=== PATIENT | female | born 1960 | race Caucasian/White ===

== ENCOUNTER 2022-03-11 18:02 | Emergency (ER) | payer BC, SELFPAY ==
[2022-03-11 18:05] VITALS: BP 138/89; PULSE 73; RESP 18; TEMP 35.7; O2SAT 100
--- NOTE | 2022-03-11 19:27 | CRLHL7_ITS ---
For Patients: As a result of the Century Cures Act, medical imaging exams and procedure reports are released immediately into your electronic medical record. You may view this report before your referring provider. If you have questions, please contact your health care provider. INDICATION: Right lower quadrant abdominal pain. TECHNIQUE: CT abdomen and pelvis without contrast. COMPARISON: 02/09/2021. FINDINGS: Lower chest: Unremarkable. Liver: Normal in size and attenuation. No suspicious masses. Gallbladder and bile ducts: No stones or inflammation. No biliary ductal dilatation. Spleen: Normal in size. No masses. Adrenal glands: Normal in size. No nodules. Pancreas: Unremarkable. No mass or inflammation. Kidneys: Normal in size. No suspicious masses, stones, or hydronephrosis. GI tract: Normal in caliber. No sign of mass or inflammation. Moderate colonic stool burden. Normal appendix. Lymph nodes: No lymphadenopathy. Vasculature: Scattered atherosclerotic calcifications. Abdominal wall/Omentum/Peritoneum: Similar hazy fat stranding involving the central mesentery. No free air or significant free fluid. Pelvis: Status post hysterectomy. Bones: Multilevel degenerative changes of the spine. IMPRESSION: 1. No acute abdominal or pelvic abnormality. No evidence of nonobstructive nephrolithiasis, urolithiasis, or hydronephrosis. 2. 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 3. Moderate colonic stool burden which can be seen with constipation. Please note that all CT scans at this facility use dose modulation, iterative reconstruction, and/or weight-based dosing when appropriate to reduce radiation dose to as low as reasonably achievable. Dictated by Benjie Brunson MD @ 03/11/2022 7:57:18 PM (Electronically Signed)
--- NOTE | 2022-03-11 19:28 | ED.ABDPAIN ---
HPI - Abdominal Pain General Chief Complaint: Abdominal Pain Stated Complaint: Stabbing Pain LR Abdomen Time Seen by Provider: 03/11/22 19:17 History of Present Illness HPI narrative: This 61-year-old female comes in reporting intermittent crampy right lower quadrant abdominal pain that woke her up in the morning at 3:00 a.m., about 16 hours ago. Since then she has had intermittent but intense episodes of abdominal pain localized in the right lower quadrant. She did have some urinary hesitancy last night and then some increased frequency this morning. She states that she may have had a kidney stone in the past as there was a suspicion for this but it was not identified at the time she was evaluated then as her symptoms had passed. She does not report any fevers, constipation, nausea, vomiting, or other symptoms of infection. Related Data Allergies Allergy/AdvReac Type Severity Reaction Status Date / Time Unable to Assess Allergy Unverified 03/11/22 18:11 Review of Systems Status of ROS Reports: 10 or more systems reviewed and unremarkable except as noted in History and below Narrative Constitutional: No fevers, no weight gain or loss. Eyes: No discharge. No vision changes. HENT: No congestion, no sore throat, no ear pain. Cardiovascular: No chest pain, no palpitations. Respiratory: No shortness of breath, no wheezes, no cough. Gastrointestinal: No vomiting, no diarrhea. Abdominal pain as described above. Genitourinary: No dysuria, no hematuria. Musculoskeletal: Normal range of motion. Skin: No rashes, no pruritis. Neurological: No dizziness, weakness, sensory change, speech change. Endo/Heme/Allergies: No bruising or bleeding. No polydipsia. Pysch: no suicidality, no anxiety, no insomnia. All other systems reviewed and are negative. [facility] Social History Smoking Status: Former smoker Do you use any of these nicotine containing products: None How often do you have a drink containing alcohol: 2-3 times a week How many standard drinks containing alcohol do you have on a typical day: 3 or 4 AUDIT-C Alcohol total score: 4 Non-prescribed substance use: denies use Exam Narrative: Exam Narrative: Constitutional: Well-developed, well-nourished, no acute distress. HEENT: Normocephalic, atraumatic. Neck: Normal range of motion. Nontender. Supple. Heart: Regular. No murmurs. Normal rate. Intact distal pulses. Lungs: Clear to auscultation. No chest discomfort. No wheezes, rhonchi, or rales. Abdomen: Normal bowel sounds. Tenderness in the right lower quadrant. I am able to palpate rather deeply there without increased pain. No rebound tenderness. Genitalia: Deferred. Back: No midline tenderness. Normal range of motion. Extremities: Normal range of motion. No injury. Skin: Intact. No rash. Warm. No erythema or pallor. Neurologic: No altered sensation. No weakness. Alert and oriented. Psychiatric: No suicidality. No anxiety or depression. No insomnia. Nursing notes and vitals signs are reviewed. Const: Vital Signs, click to edit/add: Vital Signs - 24 hr 03/11/22 18:05 Temperature 96.3 F L Pulse Rate [Pulse Oximeter] 73 Respiratory Rate 18 Blood Pressure [Ri ght Upper Arm] 138/89 Pulse Oximetry 100 Oxygen Delivery Me thod Room Air Course Vital Signs Vital signs: Initial Vital Signs Temperature 96.3 F L 03/11/22 18:05 Temperature Source Temporal Artery Scan 03/11/22 18:05 Pulse Rate 73 03/11/22 18:05 Pulse Rhythm 03/11/22 18:05 Respiratory Rate 18 03/11/22 18:05 Blood Pressure 138/89 03/11/22 18:05 Blood Pressure Mean 105 03/11/22 18:05 Blood Pressure Position Sitting 03/11/22 18:05 Pulse Oximetry 100 03/11/22 18:05 Oxygen Delivery Method 03/11/22 18:05 Vital Signs Temperature 96.3 F L 03/11/22 18:05 Pulse Rate 73 03/11/22 18:05 Respiratory Rate 18 03/11/22 18:05 Blood Pressure 138/89 03/11/22 18:05 Pulse Oximetry 100 03/11/22 18:05 Oxygen Delivery Method 03/11/22 18:05 Temperature 96.3 F L 03/11/22 18:05 Pulse Rate 73 03/11/22 18:05 Respiratory Rate 18 03/11/22 18:05 Blood Pressure 138/89 03/11/22 18:05 Pulse Oximetry 100 03/11/22 18:05 Oxygen Delivery Method 03/11/22 18:05 MDM - Abdominal Pain MDM Narrative Medical decision making narrative: This patient reports crampy abdominal pain in the right lower quadrant since early this morning. They are times in the pain is almost absent but then there are times where it is very severe. A CT scan of the abdomen and pelvis is obtained. This was and noncontrast CT and returns with no findings that explain the patient's pain, in particular there is no sign of kidney stone or hydronephrosis. She does have some element of constipation. The patient did have a bowel movement during her stay here and states that her symptoms have improved after this. Urinalysis also shows no sign of hematuria or infection. She is okay to return home. She did receive a prescription for Toradol. Lab Data Labs: Lab Results 03/11/22 Range/Units 20:00 Urine Color Yellow (Yellow) Urine Appearance Clear (Clear) Urine pH 5.0 (5.0-8.5) Ur Specific [place] 1.020 (1.000-1.030) Urine Protein Negative (Negative) Urine Glucose (UA) Negative (Negative) Urine Ketones Negative (Negative) Urine Blood Negative (Negative) Urine Nitrite Negative (Negative) Urine Bilirubin Negative (Negative) Urine Urobilinogen 0.2 (0.2-1.0) Ur Leukocyte Esterase Trace A (Negative) Urine RBC 0-2 (0-2) Urine WBC 0-2 (0-5) Ur Squamous Epith Cells None (None-Few) Urine Bacteria None (None) Imaging Data CT scan - abdomen: Radiologist's impression: 1. No acute abdominal or pelvic abnormality. No evidence of nonobstructive nephrolithiasis, urolithiasis, or hydronephrosis. 2. 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 3. Moderate colonic stool burden which can be seen with constipation. Discharge Plan Discharge Clinical Impression: Abdominal pain, Constipation Patient Disposition: Home, Self-Care Condition: Improved Additional Instructions: Take medication as needed and indicated. Follow up with MD or return if worsening. Follow Up/Referrals: David Bowens MD [Primary Care Provider] - Stand Alone Forms: [email or web address] Info Instructions
[2022-03-11 20:11] LABS: Appearance Urine Clear (Clear); Bilirubin Urine Negative (Negative); Blood Urine Negative (Negative); Color Urine Yellow (Yellow); Glucose Urine Negative (Negative); Ketones Urine Negative (Negative); Leukocyte Esterase Urine Trace (Negative); Nitrite Urine Negative (Negative); Protein Urine Negative (Negative); Urobilinogen Urine 0.2 (0.2-1.0)
[2022-03-11 20:33] LABS: RBC Urine 0-2 (0-2); WBC Urine 0-2 (0-5)
== END 2022-03-11 20:51 | disposition home or self-care (01) ==
PROVIDERS: Emergency Provider Emergency Medicine Emergency Medical Services; PCP Family Medicine
DX: K59.00 Constipation, unspecified (principal)
CPT/HCPCS: 74176; 81001; 99284

== ENCOUNTER 2022-03-24 14:00 | Outpatient (RCR) | payer BC, SELFPAY | END 2022-04-17 16:05 | disposition home or self-care (01) | PROVIDERS: PCP Family Medicine; Visit Provider Student in an Organized Health Care Education/Training Program | DX: M25.511 Pain in right shoulder (principal); M25.512 Pain in left shoulder; Z51.89 Encounter for other specified aftercare | CPT/HCPCS: 97110; 97161 ==

== ENCOUNTER 2023-06-14 13:33 | Emergency (ER) | payer BC, SELFPAY ==
[2023-06-14] VITALS (18 sets, daily range): BP systolic 112–143; BP diastolic 61–88; PULSE 62–73; RESP 18; TEMP 36.9; O2SAT 94–98; BMI 34.0
--- NOTE | 2023-06-14 13:51 | ED.CHESTPAIN ---
HPI - Chest Pain General Time Seen by Provider: 13:43 Date Seen: 06/14/23 Chief Complaint: Chest Pain Stated Complaint: Chest tightness and pinching sensation in heart Time Seen by Provider: 06/14/23 13:43 Source: patient and RN notes reviewed Mode of arrival: ambulatory Limitations: no limitations History of Present Illness HPI narrative: This 62-year-old female is coming in with the pinching sensation in part of her heart. She has underlying COPD, notes no change in breathing, does not feel short of breath. She woke overnight around 1:30 a.m. with her heart beating really have the, pounding, felt like it was going fast. She could not go back to sleep. Eventually she was able to sleep about 6:00 a.m.. She feels no sense of heart pounding now or fast heart rate. Around 11:00 a.m., started to notice a pinching sensation in the small area of her heart or portion of her heart. She has not noticed it get worse with activity. It has been there constantly. She denies any cough or cold symptoms. She did have 2 bowel movements today but they were normal. There has been no associated nausea vomiting or diarrhea. This pain is not radiating anywhere. She has had no acute recent respiratory symptoms. Her COPD has been stable. She has no prior cardiac history. Her mom had cardiac disease and did have to have cardiac stents. MD complaint: chest pain Related Data Home Medications Medication Instructions Recorded Confirmed fluticasone 250 mcg-salmeterol 50 1 ea inhalation BID 06/14/23 06/14/23 mcg/dose blistr powdr for inhalation (Advair Diskus) nystatin 100,000 unit/mL oral 4 - 6 ml PO QID 06/14/23 06/14/23 suspension Allergies Allergy/AdvReac Type Severity Reaction Status Date / Time Unable to Assess Allergy Unverified 03/11/22 18:11 Review of Systems Status of ROS Reports: 6 or more systems reviewed and unremarkable except as noted in History and below PFSH PFS Social History Smoking Status: Former smoker Do you use any of these nicotine containing products: None How often do you have a drink containing alcohol: 2-3 times a week How many standard drinks containing alcohol do you have on a typical day: 3 or 4 AUDIT-C Alcohol total score: 4 Non-prescribed substance use: denies use Exam Const Vital Signs, click to edit/add: Vital Signs - 24 hr 06/14/23 13:48 06/14/23 13:55 06/14/23 14:00 Temperature 98.5 F Pulse Rate 62 67 Pulse Rate [Pulse Oximeter] 63 Respiratory Rate 18 Blood Pressure Blood Pressure [Right Upper Arm] 143/74 H Pulse Oximetry 94 96 95 06/14/23 14:02 06/14/23 14:05 06/14/23 14:15 Temperature Pulse Rate 65 69 Pulse Rate [Pulse Oximeter] Respiratory Rate Blood Pressure 121/72 Blood Pressure [Right Upper Arm] Pulse Oximetry 98 96 98 06/14/23 14:30 06/14/23 14:35 06/14/23 14:45 Temperature Pulse Rate 73 65 66 Pulse Rate [Pulse Oximeter] Respiratory Rate Blood Pressure 138/70 Blood Pressure [Right Upper Arm] Pulse Oximetry 96 98 97 06/14/23 15:00 06/14/23 15:02 Temperature Pulse Rate 69 67 Pulse Rate [Pulse Oximeter] Respiratory Rate Blood Pressure 112/88 Blood Pressure [Right Upper Arm] Pulse Oximetry 95 96 This 62-year-old female is alert, interactive, no apparent distress. Pupils equal round reactive, sclera clear. Face is symmetric, atraumatic. It to speak in complete sentences. Lungs are clear, good air entry, no wheezing or crackles, no tachypnea. CV regular rate and rhythm, no murmur, normal S1-S2, no S3-S4. Neck is supple, no adenopathy, no thyromegaly masses or nodules. Note no jugular venous distension. Abdomen is soft, nontender. She has no lower extremity edema. Patient was ambulatory into the ED of her own accord. Documenting provider has reviewed patient's vital signs: yes Course Course ED Course: Reviewed with patient that her baseline EKG does look normal. We do need to do further blood work, will start with a portable chest x-ray. Will consider cardiac arrhythmia, have her on cardiac monitoring and pulse oximetry here. It is possible that it could be COPD or respiratory infection but she really does not support symptoms of this. We will start with a portable chest x-ray as noted. Will get appropriate labs including troponin. Will also do a D-dimer. Venous thrombotic disease as well as ischemic cardiac disease will also be considered. I a have been able to reassure her that a baseline EKG looks normal. She has had symptoms for about 3 hours now. If workup here is negative, will likely make recommendations for further outpatient monitoring which certainly would be an echo and further outpatient cardiac monitoring. Doubtful that this is any GI symptoms. Reevaluation(s) Time of Reevaluation #1: 15:23 Reevaluation #1: Labs are reassuring but still awaiting D-dimer. Will repeat EKG and troponin at this time as patient had 3 hours of symptoms prior to coming in. Time of Reevaluation #2: 16:08 Reevaluation #2: The patient is wanting to go home. We reviewed as soon as we get her follow-up troponin and if normal/negative, will discharge to home. Reviewed the other normal labs we have done, explained the D-dimer which is normal. Her chest x-ray showing no acute pathology. She is feeling fine at this time. We did discuss my concern for the pounding fast heart rate overnight, would recommend follow up in clinic for cardiac monitoring and consideration of obtaining an echo if felt appropriate by her primary provider. No evidence of any active ischemia or heart attack, no definite evidence of PE or respiratory infection developing. Vital Signs Vital signs: Initial Vital Signs Temperature 98.5 F 06/14/23 13:48 Temperature Source Temporal Artery Scan 06/14/23 13:48 Pulse Rate 63 06/14/23 13:48 Pulse Rhythm Regular 06/14/23 13:48 Respiratory Rate 18 06/14/23 13:48 Blood Pressure 143/74 H 06/14/23 13:48 Blood Pressure Mean 97 06/14/23 13:48 Pulse Oximetry 94 06/14/23 13:48 Vital Signs Temperature 98.5 F 06/14/23 13:48 Pulse Rate 63 06/14/23 13:48 Respiratory Rate 18 06/14/23 13:48 Blood Pressure 143/74 H 06/14/23 13:48 Pulse Oximetry 94 06/14/23 13:48 Temperature 98.5 F 06/14/23 13:48 Pulse Rate 67 06/14/23 15:02 Respiratory Rate 18 06/14/23 13:48 Blood Pressure 112/88 06/14/23 15:02 Pulse Oximetry 96 06/14/23 15:02 MDM - Chest Pain Lab Data Attestation: I reviewed the patient's lab results. Labs: Lab Results 06/14/23 06/14/23 Range/Units 14:05 14:35 WBC 8.82 (4.50-11.00) K/uL RBC 4.88 (4.00-5.20) m/uL Hgb 13.6 (12.0-16.0) gm/dL Hct 43.3 (33.0-51.0) % MCV 89 (80-100) fL MCH 28 (26-34) pg MCHC 31 L (32-36) gm/dL RDW Coeff of Benjie 12.9 (11.5-15.5) % Plt Count 252 (140-440) K/uL Neut % (Auto) 61.9 (42.0-72.0) % Lymph % (Auto) 27.0 (20-44) % [place] % (Auto) 9.4 (0.0-11.0) % Eos % (Auto) 0.7 (0.0-7.0) % Baso % (Auto) 0.3 (0.0-3.0) % Neut # (Auto) 5.46 (1.7-7.0) K/uL Lymph # (Auto) 2.38 (0.90-2.90) K/uL [place] # (Auto) 0.80 (0.00-0.90) K/UL Eos # (Auto) 0.06 (0.00-0.50) K/uL Baso # (Auto) 0.03 (0.00-0.30) K/uL Abs Immat Gran (auto) 0.06 (0.00-0.30) K/uL Imm/Tot Granulo (auto) 0.7 % D-Dimer Quant (PE/DVT) < 0.27 (0.00-0.50) ug/ml Sodium 140 (135-149) mmol/L Potassium 3.8 (3.6-5.1) mmol/L Chloride 103 (96-114) mmol/L Carbon Dioxide 28 (20-32) mmol/L Anion Gap 9 (7-15) mEq/L BUN 25 (7-30) mg/dL Creatinine 0.7 (0.5-1.5) mg/dL Estimated Creat Clear 59.40 Estimated GFR 97 ml/min Glucose 101 (60-115) mg/dL Calcium 10.0 (8.4-10.6) mg/dL Magnesium 2.0 (1.5-2.6) mg/dL Total Bilirubin 0.5 (0.1-1.5) mg/dL AST 22 (12-35) U/L ALT 19 (4-35) U/L Alkaline Phosphatase 108 (40-150) U/L C-Reactive Protein < 0.5 L (0.5-1.0) mg/dL NT-Pro-B Natriuret Pep 89 pg/mL Total Protein 8.1 (6.0-8.3) g/dL Albumin 4.6 (3.3-5.0) g/dL POC Troponin I 0.01 (0.01-0.04) ng/ml Follow up POC troponin 0.00. Imaging Data Chest x-ray: Attestation: I have reviewed the pertinent imaging results. My impression: I see no acute pathology my preliminary review, no infiltrate, no pneumothorax. Radiologist's impression: Patient: ULI BRADFORD Facility:?[facility] Patient ID:?[id number] Site Patient ID:?[id number]. Site :?[id number] Study:?XRay Chest PORTABLE-06/14/2023 2:14:29 PM Ordering Physician:KUSHAL Final Report: INDICATION : Chest pain. TECHNIQUE: One view the chest. COMPARISON: None. FINDINGS: Normal cardiomediastinal silhouette size. There is no focal pulmonary opacity, pleural effusion or pneumothorax. The visualized osseous structures are unremarkable for age. IMPRESSION: No acute cardiopulmonary abnormality. Dictated by Nicolle Torres MD @ 06/14/2023 2:36:35 PM (Electronic Signature) ECG Data Attestation: I personally reviewed and interpreted this ECG as follows: (Normal sinus rhythm, 60 beats per minute. QT corrected 425 milliseconds. No evidence of ischemia or infarct.) ECG interpretation date: 06/14/23 ECG interpretation time: 13:52 Discharge Plan Discharge Clinical Impression: Atypical chest pain Patient Disposition: Home, Self-Care Condition: Stable Instructions: Chest Pain (ED), Noncardiac Chest Pain (ED) Additional Instructions: Continue to monitor your symptoms. Should you have sense of pounding or fast heart beat again that is sustained, do recommend being re-evaluated. If you have increasing chest discomfort, develop other concerning symptoms such as shortness of breath, feel you are coming down with upper respiratory infection, do recommend re-evaluation as well. Otherwise, follow up in clinic. Do talk to her primary care provider about having a ZIO patch placed and consideration for obtaining an echo if they feel this is appropriate based on your symptoms. Activity Level: Activity as Tolerated Prescriptions: No Action fluticasone propion-salmeterol [Advair Diskus] 250-50 mcg/dose blister with device 1 ea INHALATION BID nystatin 100,000 unit/mL suspension 4 - 6 ml PO QID Follow Up/Referrals: David Bowens MD [Primary Care Provider] - Stand Alone Forms: [employer] Info Instructions
--- NOTE | 2023-06-14 14:05 | XR_ITS ---
Patient: ULI BRADFORD Facility:?[facility] Patient ID:?[id number] Site Patient ID:?[id number]. Site :?[id number] Study:?XRay-Chest PORTABLE-06/14/2023 2:14:29 PM Ordering Physician:KUSHAL Final Report: INDICATION : Chest pain. TECHNIQUE: One view the chest. COMPARISON: None. FINDINGS: Normal cardiomediastinal silhouette size. There is no focal pulmonary opacity, pleural effusion or pneumothorax. The visualized osseous structures are unremarkable for age. IMPRESSION: No acute cardiopulmonary abnormality. Dictated by Nicolle Torres MD @ 06/14/2023 2:36:35 PM Signed by:?Nicolle Torres MD @06/14/2023 2:36:35 PM (Electronic Signature)
[2023-06-14 14:43] LABS: Troponin, Point-of-Care* 0.01 ng/ml (0.01-0.04)
[2023-06-14 14:45] LABS: Basophils Absolute Auto 0.03 K/uL (0.00-0.30); Basophils Percent Auto 0.3 % (0.0-3.0); Eosinophils Absolute Auto 0.06 K/uL (0.00-0.50); Eosinophils Percent Auto 0.7 % (0.0-7.0); Hematocrit 43.3 % (33.0-51.0); Hemoglobin* 13.6 gm/dL (12.0-16.0); Immature Granulocytes Abs Auto 0.06 K/uL (0.00-0.30); Immature Granulocytes Pct Auto 0.7 %; Lymphocytes Absolute Auto 2.38 K/uL (0.90-2.90); Mean Corpuscular HGB Conc 31 gm/dL (32-36); Mean Corpuscular Hemoglobin 28 pg (26-34); Mean Corpuscular Volume 89 fL (80-100); Monocytes Percent Auto 9.4 % (0.0-11.0); Neutrophils Absolute Auto 5.46 K/uL (1.7-7.0); Neutrophils Percent Auto 61.9 % (42.0-72.0); Platelet Count* 252 K/uL (140-440); RDW Coefficient of Variation % 12.9 % (11.5-15.5); Red Blood Count 4.88 m/uL (4.00-5.20); White Blood Count* 8.82 K/uL (4.50-11.00)
[2023-06-14 14:50] LABS: Slide Review Reflex No
[2023-06-14 15:00] LABS: Albumin* 4.6 g/dL (3.3-5.0); Chloride* 103 mmol/L (96-114); Sodium* 140 mmol/L (135-149)
[2023-06-14 15:01] LABS: Potassium* 3.8 mmol/L (3.6-5.1)
[2023-06-14 15:03] LABS: Anion Gap 9 mEq/L (7-15); Aspartate Amino Transferase* 22 U/L (12-35); Bilirubin Total* 0.5 mg/dL (0.1-1.5); Carbon Dioxide* 28 mmol/L (20-32); Creatinine* 0.7 mg/dL (0.5-1.5); Estimated Glomerular Filt Rate 97 ml/min
[2023-06-14 15:04] LABS: Alanine Aminotransferase* 19 U/L (4-35); Alkaline Phosphatase* 108 U/L (40-150); Blood Urea Nitrogen* 25 mg/dL (7-30); Glucose* 101 mg/dL (60-115); Total Protein* 8.1 g/dL (6.0-8.3)
[2023-06-14 15:12] LABS: C Reactive Protein* < 0.5 mg/dL (0.5-1.0); NT Pro B Type NatriureticPept* 89 pg/mL
[2023-06-14 15:24] LABS: D Dimer Quantitative* < 0.27 ug/ml (0.00-0.50)
== END 2023-06-14 16:26 | disposition home or self-care (01) ==
PROVIDERS: Emergency Provider Family Medicine; PCP Family Medicine
DX: R07.9 Chest pain, unspecified (principal)
CPT/HCPCS: 36415; 71045; 80053; 83735; 83880; 84484; 85025; 85379; 86140; 93005; 94761; 99284; 99285